=== PATIENT | male | born 1965 ===

== ENCOUNTER 2018-11-10 07:54 | Emergency (ER) | payer SELFPAY ==
[~2018-11-10] VITALS: Ht 172.7 cm; Wt 79.5 kg
[2018-11-10 08:07] VITALS: BP 145/105
[2018-11-10] MEDS ORDERED: normal saline 1000ML IV soln IV ONE (08:15)
[2018-11-10] MEDS ORDERED: pantoprazole 40 MG vial IV ONE (08:15)
[2018-11-10] MEDS ORDERED: pantoprazole 40MG/NS 100ML BAG 100 ML IV SCH ×2 (08:24→11:00)
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
--- NOTE | 2018-11-10 08:59 | NUR ---
REQUESTED URINE FROM PT, URINAL PRIVACY PROVIDED
[2018-11-10] MEDS ORDERED: pantoprazole 40mg Tablet.DR PO STA (09:01)
--- NOTE | 2018-11-10 09:08 | NUR ---
UPON ENTERING THE ROOM PT NOTED TO BE DRESSING SAYING HE IS LEAVING, WAS ABLE TO GIVE HIME THE PO PROTONICS, INFORMED CHARGE NURSE AR[place]ENTINA AND DR. Blade MATUTE AT BEDSIDE TRYING TO CONVINCE PT TO STAY TELLING H IM THE RISK OF LEAVING AND PT STATES HE IS LEAVING. AMA PAPER WAS SIGNED.
[2018-11-10 09:09] LABS: BASOPHILS # (AUTO) 0.1 X10'3 (0-0.2); BASOPHILS % (AUTO) 0.8 % (0-1); EOSINOPHILS # (AUTO) 0.1 X10'3 (0-0.9); EOSINOPHILS % (AUTO) 0.6 % (0-6); HEMATOCRIT 48.7 % (42.0-52.0); HEMOGLOBIN 16.5 g/dl (14.0-17.9); LYMPHOCYTES # (AUTO) 1.9 X10'3 (1.1-4.8); LYMPHOCYTES % (AUTO) 21.5 % (21-51); MEAN CORPUSCULAR HEMOGLOBIN 29.9 PG (27.0-31.0); MEAN CORPUSCULAR HGB CONC 33.9 g/dL (33.0-36.5); MEAN CORPUSCULAR VOLUME 88.1 FL (78-98); MONOCYTES # (AUTO) 0.6 X10'3 (0-0.9); MONOCYTES % (AUTO) 6.4 % (2-12); NEUTROPHILS # (AUTO) 6.2 X10'3 (1.8-7.7); NEUTROPHILS % (AUTO) 70.7 % (42-75); PLATELET COUNT 311 X10'3 (140-440); RED BLOOD COUNT 5.52 X10'6 (4.70-6.10); RED CELL DISTRIBUTION WIDTH 14.9 % (11.5-14.5); WHITE BLOOD COUNT 8.8 X10'3 (4.5-11.0)
[2018-11-10 09:18] LABS: ALANINE AMINOTRANSFERASE 31 U/L (12-78); ALBUMIN 3.7 G/DL (3.4-5.0); ALBUMIN/GLOBULIN RATIO 0.9 (1.1-1.5); ALKALINE PHOSPHATASE 180 IU/L (46-116); ANION GAP 9 (8-16); ASPARTATE AMINO TRANSFERASE 36 U/L (10-37); BILIRUBIN,TOTAL 0.9 MG/DL (0.1-1.0); BLOOD UREA NITROGEN 8 MG/DL (7-18); BUN/CREATININE RATIO 11.3 (5.4-32.0); CALCIUM 9.1 MG/DL (8.5-10.1); CHLORIDE 100 MMOL/L (99-107); CREATININE 0.71 MG/DL (0.60-1.10); ETHANOL 0.025 GM/DL (0.0-0.010); GLUCOSE 115 MG/DL (70-104); POTASSIUM 3.4 MMOL/L (3.5-5.1); SODIUM 138 MMOL/L (135-145); TOTAL CARBON DIOXIDE 28.7 MMOL/L (24-32); TOTAL PROTEIN 7.6 G/DL (6.4-8.2); eGFR > 90 ML/MIN
[2018-11-10 09:19] LABS: PARTIAL THROMBOPLASTIN TIME 32 SECONDS (22-32)
[2018-11-12 14:39] LABS: OCCULT BLOOD STOOL POSITIVE (Neg)
== END 2018-11-10 09:15 | disposition left against medical advice (07) ==
LOC: ER 07:55
DX: F10.129 Alcohol abuse with intoxication, unspecified (principal); K62.5 Hemorrhage of anus and rectum; R10.32 Left lower quadrant pain; Z88.0 Allergy status to penicillin; Y90.9 Presence of alcohol in blood, level not specified
CPT/HCPCS: 36415; 71045; 74176; 80053; 80320; 82272; 85025; 85610; 85730; 86885; 86900; 86901; 93005; 99284